=== PATIENT | male | born 1985 | race Caucasian/White ===

== ENCOUNTER 2022-04-11 20:57 | Emergency (ER) | payer OTHER ==
[~2022-04-11] VITALS: Ht 170.2 cm; Wt 77.0 kg
[2022-04-11 21:51] VITALS: BP 130/81
[2022-04-11] MEDS ORDERED: LIDOCAINE 5% TRANSDERMAL PATCH TD ONE (23:15)
[2022-04-11] MEDS ORDERED: IBUPROFEN 400 MG TABLET PO ONE (23:15)
[2022-04-11] MEDS ORDERED: ACETAMINOPHEN 325 MG TABLET PO ONE (23:15)
== END 2022-04-12 01:53 | disposition home or self-care (01) ==
LOC: EMS 21:02
DX: S20.212A Contusion of left front wall of thorax, initial encounter (principal); S00.33XA Contusion of nose, initial encounter; Y04.8XXA Assault by other bodily force, initial encounter; Y93.89 Activity, other specified; Y92.149 Unspecified place in prison as the place of occurrence of the external cause; Y99.8 Other external cause status
CPT/HCPCS: 71101; 99284; Z7502; Z7610

== ENCOUNTER 2023-04-22 08:22 | Emergency (ER) | payer OTHER ==
[~2023-04-22] VITALS: Ht 177.8 cm; Wt 86.4 kg
[2023-04-22] MEDS ORDERED: ASPI-989 PO (08:41)
[2023-04-22] MEDS ORDERED: NITR0.4T50 SL (08:41)
[2023-04-22 08:56] VITALS: TEMP 99.4
[2023-04-22] MEDS ORDERED: IBUPROFEN 600 MG TABLET PO ONE (09:45)
[2023-04-22 10:00] VITALS: BP 134/85; PULSE 89; RESP 16
== END 2023-04-22 10:08 | disposition left against medical advice (07) ==
LOC: EMS 08:24
DX: R07.89 Other chest pain (principal); R51.9 Headache, unspecified
CPT/HCPCS: 71045; 93005; 99283